=== PATIENT | female | born 1970 | race Caucasian/White ===

== ENCOUNTER 2016-08-02 09:06 | Day surgery (SDC) | payer OTHER ==
[2016-08-02] MEDS ORDERED: D5 LR 1000 ML 1,000 ML IV ONE (09:33)
[2016-08-02] MEDS ORDERED: DIPRIVAN VIAL 20 ML ONE (10:23)
[2016-08-02] MEDS ORDERED: DIPRIVAN VIAL 10 ML ONE (10:42)
[2016-08-02 11:06] VITALS: BP 119/63
== END 2016-08-02 11:08 | disposition home or self-care (01) ==
LOC: SURG1 09:06
PROVIDERS: ATTEND Internal Medicine Gastroenterology
PROC: 0DBE8ZX Excision of Large Intestine, Via Natural or Artificial Opening Endoscopic, Diagnostic (ICD-10-PCS; principal; 2016-08-02 11:30)
PROC: 0DBP8ZX Excision of Rectum, Via Natural or Artificial Opening Endoscopic, Diagnostic (ICD-10-PCS; principal; 2016-08-02 11:30)
PROC: 0DJD8ZZ Inspection of Lower Intestinal Tract, Via Natural or Artificial Opening Endoscopic (ICD-10-PCS; principal; 2016-08-02 11:30)
DX: K92.1 Melena (principal); D50.8 Other iron deficiency anemias; R19.4 Change in bowel habit; D64.89 Other specified anemias; K63.5 Polyp of colon; K57.30 Diverticulosis of large intestine without perforation or abscess without bleeding; K64.8 Other hemorrhoids
CPT/HCPCS: A4217; J3490; J7120